=== PATIENT | male | born 1990 | race Caucasian/White ===

== ENCOUNTER 2018-06-10 11:50 | Emergency (ER) | payer SELFPAY, MEDICAID | END 2018-06-10 14:12 | disposition home or self-care (01) | LOC: FTE 14:12 | DX: F41.9 Anxiety disorder, unspecified (principal); J45.909 Unspecified asthma, uncomplicated; F17.210 Nicotine dependence, cigarettes, uncomplicated; R11.10 Vomiting, unspecified | CPT/HCPCS: 99283 ==

== ENCOUNTER 2018-09-05 23:59 | Emergency (ER) | payer SELFPAY | END 2018-09-06 04:40 | disposition home or self-care (01) | LOC: FTE 23:59 | DX: R07.89 Other chest pain (principal); J45.909 Unspecified asthma, uncomplicated; F17.210 Nicotine dependence, cigarettes, uncomplicated | CPT/HCPCS: 71045; 93005; 99284-25 ==

== ENCOUNTER 2018-09-06 23:16 | Emergency (ER) | payer SELFPAY | END 2018-09-07 03:01 | disposition left against medical advice (07) | LOC: FTE 23:16 | DX: Z53.21 Procedure and treatment not carried out due to patient leaving prior to being seen by health care provider (principal) ==

== ENCOUNTER 2019-01-31 10:06 | Emergency (ER) | payer MEDICAID ==
[2019-01-31] MEDS: DIPHTH/TET/ACEL PERTUSS (ADULT) 0.5 ML VIAL IM* (10:49)
[2019-01-31] MEDS: LIDOCAINE 1% (MPF) 5 ML VIAL INJ (10:50)
[2019-01-31] MEDS: HYDROCODONE/APAP (5/325) TAB PO (11:29)
[2019-01-31] MEDS: ONDANSETRON (ODT) 4 MG TAB ODT (11:29)
== END 2019-01-31 11:44 | disposition home or self-care (01) ==
LOC: FTE 11:44
DX: L02.31 Cutaneous abscess of buttock (principal); Z23 Encounter for immunization
CPT/HCPCS: 10060; 90471; 90715; 99283-25